=== PATIENT | male | born 1955 | race African-American/Black ===

== ENCOUNTER 2016-12-21 08:42 | Emergency (ER) | payer BC, OTHER ==
[2016-12-21 08:48] VITALS: BP 158/95; PULSE 88; TEMP 98.4; BMI 27.4
[2016-12-21] MEDS ORDERED: DIPHTH,PERTUSS(ACELL),TET 0.5 ML DISP.SYRIN IM ONE (09:17)
[2016-12-21] MEDS ORDERED: IBUPROFEN 600 MG TABLET (FP) PO ONE ×2 (09:17→09:37)
--- NOTE | 2016-12-21 09:25 | PDOC ---
History of Present Illness - General Chief Complaint: Laceration Stated Complaint: FALL/ LIP INJURY Time Seen by Provider: 12/21/16 09:17 History Source: Patient Exam Limitations: No Limitations - History of Present Illness Initial Comments: 12/21/16 09:20 Running a laceration to his right lower lip. Is through and through, no dental injury, no facial injury no LOC. 12/21/16 13:05 Timing/Duration: reports: just prior to arrival Severity: Yes: mild, moderate Location: reports: face Respiratory Risk Factors: reports: no cause identified Associated Symptoms: reports: denies symptoms Past History - Travel Traveled outside of the country in the last 30 days: Yes Close contact w/someone who was outside of country & ill: Yes - Past Medical History Allergies/Adverse Reactions: Allergies Allergy/AdvReac Type Severity Reaction Status Date / Time No Known Allergies Allergy Verified 12/21/16 08:48 Home Medications: Ambulatory Orders Sitagliptin Phos/Metformin HCl [Janumet Xr 50-500 mg Tablet] 1 each PO DAILY 06/13 Amox-Tr/K Cl [Augmentin 875Mg Tablet] 1 tab PO BID #14 tablet 12/21/16 Diabetes: Yes - Psycho/Social/Smoking Cessation Hx Anxiety: No Suicidal Ideation: No Smoking Status: No Smoking History: Never smoked Have you smoked in the past 12 months: No Number of Cigarettes Smoked Daily: 0 Hx Alcohol Use: No Drug/Substance Use Hx: No Substance Use Type: None Review of Systems - Review of Systems Able to Perform ROS?: Yes Is the patient limited [place] proficient: Yes Constitutional: Yes: Symptoms Reported, See HPI Musculoskeletal: Yes: Symptoms Reported Neurological: Yes: Symptoms reported All Other Systems: Reviewed and Negative *Physical Exam - Vital Signs Last Vital Signs Temp Pulse Resp BP Pulse Ox 98.4 F 88 20 158/95 99 12/21/16 08:45 12/21/16 08:45 12/21/16 08:45 12/21/16 08:45 12/21/16 08:45 - Physical Exam General Appearance: Yes: Nourished, Appropriately Dressed, Apparent Distress ( no drainage from nose or ears, no evidence of skull fracture) HEENT: positive: ANALIA, Normal ENT Inspection, TMs Normal (hemotympanum,), Pharynx Normal, Other (stellate through and through lip laceration to the right lower outer lip with 2 mm past for million border on the lower edge until injury , no bleeding from gums or dentalinsertion sites) Neck: positive: Supple, Other (no C-spine tenderness, full range of motion). negative: Tender Respiratory/Chest: positive: Lungs Clear, Normal Breath Sounds Extremity: positive: Normal Capillary Refill, Normal Inspection Integumentary: positive: Normal Color Neurologic: positive: gunner mate II-XII NML intact, Fully Oriented, Alert, Normal Mood/ Affect, Normal Response, Motor Strength 5/5 Procedures - Laceration/Wound Repair Right Lip Wound Length: to 2.5 cm Wound's Depth, Shape: stellate Irrigated w/ Saline: Yes Betadine Prep: Yes Anesthesia: 1% Lidocaine w/ Epi Wound Repaired With: Sutures Suture Size/Type: 5:0, other (gut) Number of Sutures: 8 Layer Closure: Yes Deep Layer Suture Size/Type: chromic Sterile Dressing Applied: No Progress Note - Progress Note Progress Note: Stellate through and through laceration of right lower lip. Repaired with absorbable sutures., started on Augmentin, tetanus/diphtheria/pertussis booster updated today *DC/Admit/Observation/Transfer Diagnosis at time of Disposition: Laceration of gum with complication Qualifiers: Encounter type: initial encounter Qualified Code(s): S01.512A - Laceration without foreign body of oral cavity, initial encounter - Discharge Dispostion Disposition: HOME Condition at time of disposition: Stable Admit: No - Prescriptions Prescriptions: Amox-Tr/K Cl [Augmentin 875Mg Tablet] 1 tab PO BID #14 tablet - Patient Instructions Printed Discharge Instructions: DI for Laceration Repair Additional Instructions: Rest, drink lots of fluids: Teas, water, soups Saltwater gargles/ keep mouth clean and rinse after each meal Avoid hard chewing foods, stick to ice cream, Jell-O, yogurt etc. Tylenol or Motrin for fever and pain Complete all medication as prescribed- Augmentin 875 mg tablet every 12 hours for one week Seek dental appointment as soon as possible for evaluation of dental injury Followup with private physician in one to 2 days as needed Return to emergency department for worsened symptoms, fevers, swelling to face or worsened pain Your tetanus/diphtheria/pertussis booster was updated today
== END 2016-12-21 10:19 | disposition home or self-care (01) ==
LOC: JERFT 08:42
PROC: 0CQ0XZZ Repair Upper Lip, External Approach (ICD-10-PCS; principal; 2016-12-21)
PROC: 3E0234Z Introduction of Serum, Toxoid and Vaccine into Muscle, Percutaneous Approach (ICD-10-PCS; 2016-12-21)
DX: S01.511A Laceration without foreign body of lip, initial encounter (principal); X58.XXXA Exposure to other specified factors, initial encounter; Y93.02 Activity, running; Y92.9 Unspecified place or not applicable
CPT/HCPCS: 90715; 99282-25

== ENCOUNTER 2022-11-27 04:09 | Observation (INO) | payer OTHER, BC ==
[2022-11-27 04:19] VITALS: BMI 24.2
[2022-11-27] MEDS ORDERED: SODIUM CHLORIDE 0.9% 500 ML INFUS.BAG IV ONE (05:01)
[2022-11-27] MEDS ORDERED: ONDANSETRON 4 MG/2 ML VIAL IVPUSH ONE (05:02)
[2022-11-27] MEDS ORDERED: ONDANSETRON 4 MG/2 ML VIAL ONE (05:27)
[2022-11-27] MEDS ORDERED: MECLIZINE HCL 25 MG TABLET (FP) PO ONE (05:55)
[2022-11-27] MEDS ORDERED: MECLIZINE HCL 25 MG TABLET (FP) ONE (06:09)
[2022-11-27 06:47] LABS: BASO % 0.5 % (0-2.0); EOS % 0.2 % (0-4.5); HEMATOCRIT 42.7 % (35.4-49); HEMOGLOBIN 14.2 GM/dL (11.7-16.9); LYMPH % 21.4 % (8-40); MCH 25.1 pg (25.7-33.7); MCHC 33.4 g/dl (32.0-35.9); MEAN CELL VOLUME 75.2 fl (80-96); MEAN PLT VOLUME 10.9 fl (7.5-11.1); MONO % 8.1 % (3.8-10.2); NEUT % 69.8 % (42.8-82.8); PLATELET COUNT 247 10^3/uL (134-434); RBC 5.67 M/mm3 (4.00-5.60); RDW 13.6 % (11.9-15.9); WHITE BLOOD COUNT 10.2 K/mm3 (4.0-10.0)
[2022-11-27 07:01] LABS: POTASSIUM 5.5 mmol/L (3.5-5.1)
[2022-11-27 07:05] LABS: ALBUMIN 3.3 g/dl (3.4-5.0); BLOOD UREA NITROGEN 14.8 mg/dL (7-18); CALCIUM 9.6 mg/dL (8.5-10.1)
[2022-11-27 07:09] LABS: CREATININE 1.3 mg/dL (0.55-1.3)
[2022-11-27 07:10] LABS: BILIRUBIN,TOTAL 0.9 mg/dL (0.2-1); TOT PROT 7.4 g/dl (6.4-8.2)
[2022-11-27] MEDS ORDERED: ACETAMINOPHEN 325 MG TABLET (FP) PO PRN (11:17)
[2022-11-27] MEDS ORDERED: ONDANSETRON 4 MG/2 ML VIAL IVPUSH PRN (11:17)
[2022-11-27] MEDS ORDERED: MECLIZINE HCL 25 MG TABLET (FP) PO PRN (11:22)
[2022-11-27] MEDS ORDERED: METFORMIN HCL PO SCH (11:30)
[2022-11-27] MEDS ORDERED: SITAGLIPTIN PHOS PO SCH (11:30)
[2022-11-27] MEDS ORDERED: [UNRECOGNIZED DRUG - OTHER] PO SCH (11:30)
[2022-11-27] MEDS ORDERED: INSULIN (NOVOLOG) ASPART 100 UNITS/ML 10ML VIAL ONE (12:47)
[2022-11-27] MEDS: LOSARTAN POTASSIUM 50 MG TABLET PO SCH (14:06)
[2022-11-27] MEDS: ENOXAPARIN NA (PORCINE) 40 MG/0.4 ML DISP.SYRIN SQ SCH (14:06)
[2022-11-27] MEDS: INSULIN SLIDING SCALE (NOVOLOG) 1 VIAL SQ SCH (21:59)
[2022-11-28] MEDS: INSULIN SLIDING SCALE (NOVOLOG) 1 VIAL SQ SCH ×5 (06:18→21:27)
[2022-11-28 06:54] LABS: BASO % 0.6 % (0-2.0); HEMATOCRIT 42.5 % (35.4-49); HEMOGLOBIN 14.1 GM/dL (11.7-16.9); LYMPH % 48.9 % (8-40); MCH 25.2 pg (25.7-33.7); MCHC 33.1 g/dl (32.0-35.9); MEAN CELL VOLUME 76.1 fl (80-96); MEAN PLT VOLUME 10.5 fl (7.5-11.1); MONO % 9.3 % (3.8-10.2); NEUT % 40.2 % (42.8-82.8); PLATELET COUNT 250 10^3/uL (134-434); RBC 5.58 M/mm3 (4.00-5.60); RDW 13.6 % (11.9-15.9); WHITE BLOOD COUNT 7.8 K/mm3 (4.0-10.0)
[2022-11-28] MEDS ORDERED: sitaGLIPtin PHOSPHATE 50 MG TABLET PO SCH (07:00)
[2022-11-28 07:12] LABS: POTASSIUM 4.6 mmol/L (3.5-5.1)
[2022-11-28 07:16] LABS: BLOOD UREA NITROGEN 13.8 mg/dL (7-18); CALCIUM 9.6 mg/dL (8.5-10.1)
[2022-11-28 07:19] LABS: CREATININE 1.2 mg/dL (0.55-1.3)
[2022-11-28 07:21] LABS: BILIRUBIN,TOTAL 0.9 mg/dL (0.2-1); TOT PROT 6.9 g/dl (6.4-8.2)
[2022-11-28] MEDS ORDERED: SODIUM CHLORIDE 0.45% 1,000 ML IV SCH (08:00)
[2022-11-28] MEDS: LOSARTAN POTASSIUM 50 MG TABLET PO SCH (09:00)
[2022-11-28] MEDS: ENOXAPARIN NA (PORCINE) 40 MG/0.4 ML DISP.SYRIN SQ SCH (09:00)
[2022-11-28] MEDS ORDERED: INSULIN (NOVOLOG) ASPART 100 UNITS/ML 10ML VIAL ONE ×2 (11:29→16:41)
[2022-11-28] MEDS: amLODIPine BESYLATE 5 MG TABLET (FP) PO SCH (12:38)
[2022-11-29] MEDS: INSULIN SLIDING SCALE (NOVOLOG) 1 VIAL SQ SCH ×3 (06:24→11:30)
[2022-11-29 07:19] LABS: BASO % 0.8 % (0-2.0); EOS % 0.8 % (0-4.5); HEMATOCRIT 42.4 % (35.4-49); HEMOGLOBIN 14.3 GM/dL (11.7-16.9); LYMPH % 38.1 % (8-40); MCH 25.3 pg (25.7-33.7); MCHC 33.7 g/dl (32.0-35.9); MEAN CELL VOLUME 75.1 fl (80-96); MEAN PLT VOLUME 10.2 fl (7.5-11.1); MONO % 9.4 % (3.8-10.2); NEUT % 50.9 % (42.8-82.8); PLATELET COUNT 259 10^3/uL (134-434); RBC 5.65 M/mm3 (4.00-5.60); RDW 13.8 % (11.9-15.9); WHITE BLOOD COUNT 7.4 K/mm3 (4.0-10.0)
[2022-11-29 08:16] LABS: POTASSIUM 4.6 mmol/L (3.5-5.1)
[2022-11-29 08:21] LABS: CALCIUM 9.6 mg/dL (8.5-10.1); MAGNESIUM 1.7 mg/dL (1.8-2.4)
[2022-11-29 08:23] LABS: BLOOD UREA NITROGEN 13.7 mg/dL (7-18)
[2022-11-29 08:24] LABS: CREATININE 1.1 mg/dL (0.55-1.3)
[2022-11-29 08:26] LABS: TOT PROT 6.8 g/dl (6.4-8.2)
[2022-11-29 08:27] LABS: BILIRUBIN,TOTAL 0.8 mg/dL (0.2-1)
[2022-11-29] MEDS: LOSARTAN POTASSIUM 50 MG TABLET PO SCH (09:19)
[2022-11-29] MEDS: amLODIPine BESYLATE 5 MG TABLET (FP) PO SCH (09:19)
[2022-11-29] MEDS: ENOXAPARIN NA (PORCINE) 40 MG/0.4 ML DISP.SYRIN SQ SCH (09:19)
[2022-11-29 10:08] VITALS: BP 135/86; PULSE 80; RESP 16; TEMP 99
[2022-11-29] MEDS ORDERED: INSULIN (NOVOLOG) ASPART 100 UNITS/ML 10ML VIAL ONE (11:16)
== END 2022-11-29 15:27 | disposition home or self-care (01) ==
LOC: JER 04:09 → JERBED 10:10 → J2W 11:24
PROVIDERS: ADMIT Internal Medicine; ATTEND Internal Medicine
PROC: 3E013VG Introduction of Insulin into Subcutaneous Tissue, Percutaneous Approach (ICD-10-PCS; principal; 2022-11-27)
PROC: 3E033GC Introduction of Other Therapeutic Substance into Peripheral Vein, Percutaneous Approach (ICD-10-PCS; 2022-11-27)
PROC: 3E0337Z Introduction of Electrolytic and Water Balance Substance into Peripheral Vein, Percutaneous Approach (ICD-10-PCS; 2022-11-27)
DX: I16.0 Hypertensive urgency (principal); E11.9 Type 2 diabetes mellitus without complications; R42 Dizziness and giddiness; E78.5 Hyperlipidemia, unspecified
CPT/HCPCS: 36415; 70450-TC; 71045-TC-FY; 80053; 80061; 82962; 83036; 83735; 84100; 84443; 84484; 85025; 93005; 93010; 93880-TC; 96361; 96372; 96374; 97116-GP; 97162-GP; 99285-25; G0378